=== PATIENT | male | born 1975 | race Caucasian/White ===

== ENCOUNTER 2018-02-26 15:17 | Day surgery (SDC) | payer MEDICARE, OTHER ==
[~2018-02-26] VITALS: Ht 185.4 cm; Wt 99.2 kg
[2018-02-26] MEDS ORDERED: LYRICA 150MG C150 MG PO (15:35)
[2018-02-26] MEDS ORDERED: ZANAFLEX 4MG TAB4 MG PO (15:37)
[2018-02-26 15:38] VITALS: BP 125/95; PULSE 98; TEMP 98.1
[2018-02-26 16:30] VITALS: BP 127/95; PULSE 88; TEMP 97.7
[2018-02-26 16:45] VITALS: BP 117/83; PULSE 88
== END 2018-02-26 16:56 | disposition home or self-care (01) ==
LOC: SDCO 15:17
DX: K62.1 Rectal polyp (principal); K64.1 Second degree hemorrhoids; K92.1 Melena; K64.8 Other hemorrhoids; G89.29 Other chronic pain; M54.9 Dorsalgia, unspecified; F41.9 Anxiety disorder, unspecified; I10 Essential (primary) hypertension; K58.0 Irritable bowel syndrome with diarrhea; Z86.010 Personal history of colon polyps; Z83.79 Family history of other diseases of the digestive system
CPT/HCPCS: J2250; J2405; J3010